=== PATIENT | male | born 1945 | race Caucasian/White ===

== ENCOUNTER 2017-03-09 18:51 | Emergency (ER) | payer MEDICARE ==
[~2017-03-09] VITALS: Ht 170.2 cm; Wt 77.1 kg
[2017-03-09] MEDS ORDERED: METOPROLOL TART50 MG PO (19:23)
[2017-03-09] MEDS ORDERED: SIMVASTATIN40 MG PO (19:23)
[2017-03-09] MEDS ORDERED: HYDROCHLOROTH12.5 M1 PO (19:23)
[2017-03-09] MEDS ORDERED: LISINOPRIL20 MG PO (19:24)
[2017-03-09] MEDS ORDERED: METFORMIN HCL500 MG PO (19:24)
--- NOTE | 2017-03-10 20:00 | EKG ---
[facility] [address] [facility] [place] [address] Signed Sinus tachycardia Possible Left atrial enlargement Borderline ECG No previous ECGs available Confirmed by LEESA THAKKAR MD ([id number]) on 03/10/2017 7:59:47 PM Electronically Signed By: LEESA THAKKAR MD 03/10/17 2000 PATIENT NAME: JULIO PARIS Electrocardiogram DATE OF : 45 PHYSICIAN: LEESA THAKKAR MD REPORT #: [id number] REPORT IS CONFIDENTIAL AND NOT TO BE RELEASED WITHOUT AUTHORIZATION
== END 2017-03-09 23:35 | disposition home or self-care (01) ==
LOC: ED 18:51
DX: E11.65 Type 2 diabetes mellitus with hyperglycemia (principal); E86.0 Dehydration; E78.00 Pure hypercholesterolemia, unspecified; I10 Essential (primary) hypertension; Z79.899 Other long term (current) drug therapy; Z79.84 Long term (current) use of oral hypoglycemic drugs
CPT/HCPCS: 71010; 80053; 81001; 84484; 85025; 93005; 93010; 96361; 96372; 96374; 99284; G0480; J7030

== ENCOUNTER 2018-10-30 12:36 | Emergency (ER) | payer OTHER, MEDICARE ==
[~2018-10-30] VITALS: Ht 170.2 cm; Wt 77.1 kg
--- OUTSIDE RECORDS SUMMARY | ~2018-10-30 | XMS | Clinical Summary ---
Demographics + + + | Address | [address] | | | [place] [address] | + + + | Home Phone | | + + + | Preferred Language | Unknown | + + + | Marital Status | | + + + | Adventist Affiliation | Unknown | + + + | Race | Unknown | + + + | Ethnic Group | Unknown | + + + Author + + + | Author | [facility] | + + + | Organization | [facility] | + + + | Address | Unknown | + + + | Phone | Unavailable | + + + Support + + + + + | Name | Relationship | Address | Phone | + + + + + | Breana Santiago | ECON | [address] | | | | | [place] | | | | | [address] | | + + + + + Care Team Providers + +------+ + | Care Senior Pharmacy Technician Name | Role | Phone | + [...] Vaccine: Influenza | | | | | (#1) | 8 | | | + + + + + Results Not on filefrom Last 3 Months"
--- OUTSIDE RECORDS SUMMARY | ~2018-10-30 | XMS | Clinical Summary ---
Demographics + + + | Address | [address] | | | [place] [address] | + + + | Home Phone | | + + + | Preferred Language | Unknown | + + + | Marital Status | | + + + | Yazdanism Affiliation | NON | + + + | Race | White | + + + | Ethnic Group | Not or | + + + Author + + + | Author | NON REVENUE LOCATIONS | + + + | Organization | NON REVENUE LOCATIONS | + + + | Address | Unknown | + + + | Phone | Unavailable | + + + Support + + + + + | Name | Relationship | Address | Phone | + + + + + | JUJU PARIS | ECON | [address] | | | | | [place] | | | | | [address] | | + + + + + Care Team Providers + +------+ + | Care Mattress Weaver Name | Role | Phone | + +------+ + | Dago Dodd MD | PP | | + +------+ + Source Comments ALLEGRA is fully live on both [facility] Ambulatory and [facility] InPatient.[facility] Allergies No Known Allergies Current Medications + + +-------+---------+------+------+-------+ | Prescription | Sig. | Disp. | Refills | Star | End | Statu | | | | | | t | Date | s | | | | | | Date | | | + + +-------+---------+------+------+-------+ | MULTIVITAMINS | Take by mouth once | | | | | Activ | | (MULTIVITAMIN ORAL) | daily. | | | | | e | + + +-------+---------+------+------+-------+ | lisinopril 10 mg | Take 10 mg by mouth | | | | | Activ | | Oral Tablet | once daily. | | | | | e | + + +-------+---------+------+------+-------+ | metformin 500 mg | Take 500 mg by mouth | | | | | Activ | | Oral Tablet | three times daily. | | | | | e | + + +-------+---------+------+------+-------+ | Aspirin 81 mg Oral | Take 81 mg by mouth | | | | | Activ | | Tablet | once daily. | | | | | e | + + +-------+---------+------+------+-------+ Active Problems + + + | Problem | Noted Date | + + + | Cervical stenosis of spinal canal | 06/07/2009 | + + + | Discitis of lumbar region | 03/22/2009 | + + + Family History + + +------+ + | Medical History | Relation | Name | Comments | + + +------+ + | Stroke | Mother | | | + + +------+ + + +------+--------+ + | Relation | Name | Status | Comments | + +------+--------+ + | Mother | | | | + +------+--------+ + Social History + +-------+ +--------+------+ | [...] on file | | + + + Last Filed Vital Signs + + + + | Vital Sign | Reading | Time Taken | + + + + | Blood Pressure | 198/117 | 06/21/2009 10:16 AM PST | + + + + | Pulse | 94 | 06/21/2009 10:16 AM PST | + + + + | Temperature | 37.4 C (99.3 F) | 06/10/2009 7:27 AM PST | + + + + | Respiratory Rate | 16 | 06/10/2009 7:27 AM PST | + + + + | Oxygen Saturation | 96% | 06/10/2009 7:27 AM PST | + + + + | Inhaled Oxygen | - | - | | Concentration | | | + + + + | Weight | 74.9 kg (165 lb 1.6 | 06/21/2009 10:05 AM PST | | | oz) | | + + + + | Height | 170.2 cm (5' 7") | 06/07/2009 1:48 PM PST | + + + + | Body Mass Index | 25.86 | 06/21/2009 10:05 AM PST | + + + + Plan of Treatment + + + + + | Health Maintenance | Due Date | Last Done | Comments | + + + + + | Pneumococcal (Adult) | | | | | (1 of 2 - PCV13) | 1 | | | + + + + + | Influenza (Flu) | | | | | vaccination (#1) | 8 | | | + + + + + Results Not on filefrom Last 3 Months Insurance + +--------+ +--------+ + + | Payer | Benefi | Subscriber | Type | Phone | Address | | | t Plan | ID | | | | | | / | | | | | | | Group | | | | | + +--------+ +--------+ + + | MEDICARE | MEDICA | xxxxxxxxxx | Medica | [id number] | [address] | | | RE A & | | re | [phone] | [place] [address] | | | B | | | | | + +--------+ +--------+ + + + +--------+ +--------+ + + | Guarantor Name | Accoun | Relation to | Date | Phone | Billing Address | | | t Type | Patient | of | | | | | | | | | | + +--------+ +--------+ + + | JULIO PARIS | Person | Self [birth year] Home: | [address] | [place] | al/Fam | | 1946 | [phone] | [place] [address] | | | bib | | | [phone] | | + +--------+ +--------+ + +
--- OUTSIDE RECORDS SUMMARY | ~2018-10-30 | XMS | Clinical Summary ---
Demographics + + + | Address | [address] | | | [place] [address] | + + + | Home Phone | | + + + | Preferred Language | Unknown | + + + | Marital Status | | + + + | Voodoo Affiliation | NON | + + + [...] [place] | | | | | [address] | | + + + + + Care Team Providers + +------+ + | Care Corner Trimmer Operator Name | Role | Phone | + +------+ + | Dago Dodd MD | PP | | + +------+ + Source Comments ALLEGRA is fully live on both [facility] Ambulatory and [facility] InPatient.[facility] Allergies No Known Allergies Current Medications + [...] | MEDICA | xxxxxxxxxx | Medica | [id number] | [address] | | | RE A & | | re | [phone] | [place] [address] | | | B | | | [...] | 1946 | [phone] | [place] [address] | | | bib | | | [phone] | | + +--------+ +--------+ + +
--- OUTSIDE RECORDS SUMMARY | ~2018-10-30 | XMS | Clinical Summary ---
Demographics + + + | Address | [address] | | | [place] [address] | + + + | Home Phone | | + + + | Preferred Language | Unknown | + + + | Marital Status | | + + + | Uatsdin Affiliation | Unknown | + + + | Race | Unknown | + + + | Ethnic Group | Unknown | + + + Author + + + | Author | [facility] [employer] | + + + | Organization | [facility] | + + + | Address | Unknown | + + + | Phone | Unavailable | + + + Support + + + + + | Name | Relationship | Address | Phone | + + + + + | Breana Santiago | ECON | [address] | | | | | [place] | | | | | [address] | | + + + + + Care Team Providers + +------+ + | Care Automotive Parts Counter Assistant Name | Role | Phone | + [...]
--- OUTSIDE RECORDS SUMMARY | ~2018-10-30 | XMS | Clinical Summary ---
Demographics + + + | Address | [address] | | | [place] [address] | + + + | Home Phone | | + + + | Preferred Language | Unknown | + + + | Marital Status | | + + + | Pentecostal Affiliation | Unknown | + + + | Race | Unknown | + + + | Ethnic Group | Unknown | + + + Author + + + | Author | [facility] | | | and Anandana | + + + | Organization | [facility] | | | and Anandana | + + + | Address | Unknown | + + + | Phone | Unavailable | + + + Support + + +---------+ + | Name | Relationship | Address | Phone | + + +---------+ + | Breana Paris | ECON | Unknown | | + + +---------+ + Care Team Providers + +------+ + | Care Vault Service Mechanic Name | Role | Phone | + +------+ + | Hernando Shane MD | PP | | + +------+ + Allergies No Known Allergies Current Medications + + +-------+---------+------+------+-------+ | Prescription | Sig. | Disp. | Refills | Star | End | Statu | | | | | | t | Date | s | | | | | | Date | | | + + +-------+---------+------+------+-------+ | metFORMIN | Take 500 mg by mouth | | | | | Activ | | (GLUCOPHAGE) 500 mg | 2 times daily (with | | | | | e | | tablet | breakfast & | | | | | | | | dinner). | | | | | | + + +-------+---------+------+------+-------+ | insulin glargine | Inject 55 Units | | | | | Activ | | (LANTUS) 100 | under the skin | | | | | e | | units/mL injection | nightly. | | | | | | | (vial) | | | | | | | + + +-------+---------+------+------+-------+ | lisinopril | Take 20 mg by mouth | | | | | Activ | | (PRINIVIL, ZESTRIL) | Daily. | | | | | e | | 20 mg tablet | | | | | | | + + +-------+---------+------+------+-------+ | | Take 12.5 mg by | | | | | Activ | | hydrochlorothiazide | mouth Daily. | | | | | e | | (HYDRODIURIL) 12.5 | | | | | | | | MG tablet | | | | | | | + + +-------+---------+------+------+-------+ | simvastatin | Take 20 mg by mouth | | | | | Activ | | (ZOCOR) 40 mg tablet | nightly. | | | | | e | + + +-------+---------+------+------+-------+ | metoprolol | Take 50 mg by mouth | | | | | Activ | | tartrate (LOPRESSOR) | 2 times daily. | | | | | e | | 50 mg tablet | | | | | | | + + +-------+---------+------+------+-------+ Active Problems + [...] + + | Pulse | 73 | 10/18/2015 1100 PDT | + + + + | Temperature | 36.5 C (97.7 F) | 10/18/2015 1019 PDT | + + + + | Respiratory Rate | 24 | 10/18/2015 1045 PDT | + + + + | Oxygen Saturation | 95% | 10/18/2015 1100 PDT | + + [...] | Area | Manufacture | Device | Expira | Model | | | | | r | | tion | / | | | | | | Identi | Date | Serial | | | | | | fier | | / Lot | + +------+--------+ +--------+--------+--------+ | Lens [id number] 25.0 - [id number] | | Left: | [employer] | | 12/31/ | [id number] | | [id number]: Qty: 1 on | | Eye | - ALCN | | 2019 | 25.0 | | 09/06/2015 by Azeem Ernandez | | | | | | /[id number] | | MD Ritchie | | | | | | 052 | | | | | | | | 117 / | + +------+--------+ +--------+--------+--------+ | Lens Ultrasert [id number] - | | Right: | [employer] | | 06/02/ | [id number] | | [id number]: Qty: | | Eye | - ALCN | | 2018 | .25.5 | | 1 on 10/18/2015 by Awais, | | | | | | /[id number] | | Azeem Dugan MD | | | | | | 086 | | | | | | | | 064 / | + +------+--------+ +--------+--------+--------+ Results Not on filefrom Last 3 Months Insurance + +--------+ +--------+ +---------+ | Payer | Benefi | Subscriber | Type | Phone | Address | | | t Plan | ID | | | | | | / | | | | | | | Group | | | | | + +--------+ +--------+ +---------+ | MEDICARE | MEDICA | [id number] | Medica | [phone] | | | RE | | re | [phone] | | | | PART A | | | | | | | AND B | | | | | + +--------+ +--------+ +---------+ | [employer] | TRANSA | [id number] | Indemn | | | | INSURANCE | MERICA | | ity | | | | | LIFE | | | | | | | [place] | | | | | + +--------+ +--------+ +---------+ + +--------+ +--------+ + + | Guarantor Name | Accoun | Relation to | Date | Phone | Billing Address | | | t Type | Patient | of | | | | | | | | | | + +--------+ +--------+ + + | JULIO PARIS | Person | Self | [birth year] | Home: | [address] | | [place] | al/Fam | | 1946 | [phone] | [place] [address] | | | bib | | | [phone] | | + +--------+ +--------+ + +
--- OUTSIDE RECORDS SUMMARY | ~2018-10-30 | XMS | Clinical Summary ---
Demographics + + + | Address | [address] | | | [place] [address] | + + + | Home Phone | | + + + | Preferred Language | Unknown | + + + | Marital Status | | + + + | Druze Affiliation | Unknown | + + + | Race | Unknown | + + + | Ethnic Group | Unknown | + + + Author + + + | Author | [facility] | | | and Anandana | + + + | Organization | [facility] | | | and Anandana [...] Team Providers + +------+ + | Care Public Events Facilities Rental Manager Name | Role | Phone | + [...] +------+--------+ +--------+--------+--------+ | Lens Sn60wf 25.0 - [id number] | | Left: | [employer] | | 12/31/ | [id number] | | [id number]: Qty: 1 on | | Eye | - ALCN | | 2019 | 25.0 | | 09/06/2015 by Azeem Ernandez | | | | | | /[id number] | | MD Ritchie | | | | | | 052 | | | | | | | | 117 / | + +------+--------+ +--------+--------+--------+ | Lens Ultrasert [id number] - | | Right: | [employer] | | 06/02/ | [id number] | | [id number]: Qty: | | Eye | - ALCN | | 2018 | .25.5 | | 1 on 10/18/2015 by Awais, | | | | | | /[id number] | | Azeem Dugan MD | | [...] +--------+ +---------+ | MEDICARE | MEDICA | [id number] | Medica | [phone] | | | RE | | re | [phone] | | | | PART A | | | | | | | AND B | | | | | + +--------+ +--------+ +---------+ | [employer] | TRANSA | [id number] | Indemn | | | | INSURANCE [...] | 1946 | [phone] | [place] [address] | | | bib | | | [phone] | | + +--------+ +--------+ + +
[~2018-10-30 12:36] MED LIST: HYDROCHLOROTH12.5 M1 PO; LISINOPRIL20 MG PO; METFORMIN HCL500 MG PO; METOPROLOL TART50 MG PO; SIMVASTATIN40 MG PO
[2018-10-30] MEDS ORDERED: LANTUS100 UNITS/ SUB-Q (12:47)
[2018-10-30] MEDS ORDERED: NORCO 5-325 TA1 EACH PO (16:49)
[2018-10-30] MEDS ORDERED: CIPRO500 MG PO (16:49)
== END 2018-10-30 17:40 | disposition home or self-care (01) ==
LOC: ED 12:36
DX: N39.0 Urinary tract infection, site not specified (principal); C64.1 Malignant neoplasm of right kidney, except renal pelvis; E11.9 Type 2 diabetes mellitus without complications; I10 Essential (primary) hypertension; Z79.899 Other long term (current) drug therapy; Z79.4 Long term (current) use of insulin
CPT/HCPCS: 74177; 76705; 80053; 81001; 83690; 85025; 87088; 96361; 99284-25; J1170; J1956; J7120; Q9967

== ENCOUNTER 2018-12-10 17:39 | Inpatient (IN) | payer MEDICARE ==
[~2018-12-10] VITALS: Ht 170.2 cm; Wt 75.5 kg
--- OUTSIDE RECORDS SUMMARY | ~2018-12-10 | XMS | Clinical Summary ---
Demographics + + + | Address | [address] | | | [place] [address] | + + + | Home Phone | | + + + | Preferred Language | Unknown | + + + | Marital Status | | + + + | Pentecostalism Affiliation | Unknown | + + + | Race | Unknown | + + + | Ethnic Group | Unknown | + + + Author + + + | Author | [facility] | + + + | Organization | [facility] | + + + | Address | Unknown | + + + | Phone | Unavailable | + + + Support + + + + + | Name | Relationship | Address | Phone | + + + + + | Breana Santiago | ECON | [address] | | | | | [place] | | | | | [address] | | + + + + + Care Team Providers + +------+ + | Care Bread Panner Name | Role | Phone | + +------+ + | German Cotton MD | PP | | + +------+ + Allergies Not on File Current Medications Not on file Active Problems Not on file Social History + +-------+ +--------+------+ | Tobacco Use | Types | Packs/Day | Years | Date | | | | | Used | | + +-------+ +--------+------+ | Never Assessed | | | | | + +-------+ +--------+------+ + + + | Sex Assigned at | Date Recorded | | | | + + + | Not on file | | + + + Plan of Treatment + + + + + | Health Maintenance | Due Date | Last Done | Comments | + + + + + | Vaccine: | | | | | Dtap/Tdap/Td (1 - | 5 | | | | Tdap) | | | | + + + + + | Vaccine: Zoster (1 | | | | | of 2) | 6 | | | + + + + + | Vaccine: | | | | | Pneumococcal 65+ | 1 | | | | Low/Medium Risk (1 | | | | | of 2 - PCV13) | | | | + + + + + | Vaccine: Influenza | | | | | (Season Ended) | 9 | | | + + + + + Results Not on filefrom Last 3 Months"
--- OUTSIDE RECORDS SUMMARY | ~2018-12-10 | XMS | Encounter Summary ---
Demographics + + + | Address | [address] | | | [place] [address] | + + + | Home Phone | | + + + | Preferred Language | Unknown | + + + | Marital Status | | + + + | Rastafarian Affiliation | NON | + + + | Race | White | + + + | Ethnic Group | Not or | + + + Author + + + | Author | [facility] | + + + | Organization | [facility] | + + + | Address | Unknown | + + + | Phone | Unavailable | + + + Support + + + + + | Name | Relationship | Address | Phone | + + + + + | JUJU PARIS | ECON | [address] | | | | | [place], [place] | | | | | [address] | | + + + + + Care Team Providers + +------+ + | Care Christmas Bell Ringer Name | Role | Phone | + +------+ + | Dago Dodd MD | PCP | | + +------+ + Encounter Details +--------+ + + + + | Date | Type | Department | Care Team | Description | +--------+ + + + + | 12/02/ | Abstract | Urology at [facility] | Clinic, | | | 2019 | | [address] | Urology/Oncology | | | | | Mail Code: CH10U | | | | | | [facility] | | | | | | and Healing, | | | | | | Floor [place], [place] | | | | | | [address] | | | | | | [phone] | | | +--------+ + + + + Social History + +-------+ +--------+------+ | Tobacco Use | Types | Packs/Day | Years | Date | | | | | Used | | + +-------+ +--------+------+ | Never Smoker | | | | | + +-------+ +--------+------+ + + +---------+ + | Alcohol Use | Drinks/We | oz/Week | Comments | | | ek | | | + + +---------+ + | No | | | | + + +---------+ + + + + | Sex Assigned at | Date Recorded | | | | + + + | Not on file | | + + + as of this encounter Plan of Treatment +--------+---------+ + + + | Date | Type | Specialty | Care Team | Description | +--------+---------+ + + + | 01/03/ | Office | Urology | [place], | | | 2019 | Visit | | Gerald Persaud MD | | | | | | [address] | | | | | | [place], | | | | | | [place] [address] | | | | | | [phone] | | | | | | | | +--------+---------+ + + + as of this encounter Visit Diagnoses Not on filein this encounter"
--- OUTSIDE RECORDS SUMMARY | ~2018-12-10 | XMS | Clinical Summary ---
Demographics + + + | Address | [address] | | | [place] [address] | + + + | Home Phone | | + + + | Preferred Language | Unknown | + + + | Marital Status | | + + + | Caodaism Affiliation | Unknown | + + + | Race | Unknown | + + + | Ethnic Group | Unknown | + + + Author + + + | Author | [facility] | | | and Anandana | + + + | Organization | [facility] | | | and Anandana | + + + | Address | Unknown | + + + | Phone | Unavailable | + + + Support + + +---------+ + | Name | Relationship | Address | Phone | + + +---------+ + | Breana Santiago | ECON | Unknown | | + + +---------+ + Care Team Providers + +------+ + | Care Anesthesiology Faculty Name | Role | Phone | + +------+ + | Hernando Shane MD | PP | | + +------+ + Allergies No Known Allergies Medications + + + +---------+------+------+-------+ | Medication | Sig | Dispensed | Refills | Star | End | Statu | | | | | | t | Date | s | | | | | | Date | | | + + + +---------+------+------+-------+ | metFORMIN | Take 500 mg by mouth | | 0 | | | Activ | | (GLUCOPHAGE) 500 mg | 2 times daily (with | | | | | e | | tablet | breakfast & | | | | | | | | dinner). | | | | | | + + + +---------+------+------+-------+ | insulin glargine | Inject 55 Units | | 0 | | | Activ | | (LANTUS) 100 | under the skin | | | | | e | | units/mL injection | nightly. | | | | | | | (vial) | | | | | | | + + + +---------+------+------+-------+ | lisinopril | Take 20 mg by mouth | | 0 | | | Activ | | (PRINIVIL, ZESTRIL) | Daily. | | | | | e | | 20 mg tablet | | | | | | | + + + +---------+------+------+-------+ | | Take 12.5 mg by | | 0 | | | Activ | | hydrochlorothiazide | mouth Daily. | | | | | e | | (HYDRODIURIL) 12.5 | | | | | | | | MG tablet | | | | | | | + + + +---------+------+------+-------+ | simvastatin | Take 20 mg by mouth | | 0 | | | Activ | | (ZOCOR) 40 mg tablet | nightly. | | | | | e | + + + +---------+------+------+-------+ | metoprolol | Take 50 mg by mouth | | 0 | | | Activ | | tartrate (LOPRESSOR) | 2 times daily. | | | | | e | | 50 mg tablet | | | | | | | + + + +---------+------+------+-------+ Active Problems + + + | Problem | Noted Date | + + + | Hypertension | | + + + | Arthritis | | + + + Social History + + + +--------+ + | Tobacco Use | Types | Packs/Day | Years | Date | | | | | Used | | + + + +--------+ + | Former Smoker | Cigarettes | 0.5 | 5 | Quit: 08/03/1979 | + + + +--------+ + + +---+---+---+ | Smokeless Tobacco: | | | | | Never Used | | | | + +---+---+---+ + + +---------+ + | Alcohol Use | Drinks/We | oz/Week | Comments | | | ek | | | + + +---------+ + | No | | | | + + +---------+ + + + + | Sex Assigned at | Date Recorded | | | | + + + | Not on file | | + + + + + + + | Job Start Date | Occupation | Industry | + + + + | Not on file | Not on file | Not on file | + + + + + + + + | Travel History | Travel Start | Travel End | + + + + + + | No recent travel history available. | + + Last Filed Vital Signs + + + + | Vital Sign | Reading | Time Taken | + + + + | Blood Pressure | 168/73 | 10/18/2015 1100 PDT | + + + + | Pulse | 73 | 10/18/20151099 PDT | + + + + | Temperature | 36.5 C (97.7 F) | 10/18/2015 1019 PDT | + + + + | Respiratory Rate | 24 | 10/18/2015 1045 PDT | + + + + | Oxygen Saturation | 95% | 10/18/20151099 PDT | + + + + | Inhaled Oxygen | - | - | | Concentration | | | + + + + | Weight | 80.7 kg (178 lb) | 10/18/2015699 PDT | + + + + | Height | 170.2 cm (5' 7") | 10/18/2015699 PDT | + + + + | Body Mass Index | 27.88 | 10/18/2015699 PDT | + + + + Plan of [...] | | + + + + + Implants + +------+--------+ +--------+--------+--------+ | Implanted | Type | Area | Manufacture | Device | Shelf | Model | | | | | r | | Expira | / | | | | | | Identi | tion | Serial | | | | | | fier | Date | / Lot | + +------+--------+ +--------+--------+--------+ | Lens [id number] 25.0 - [id number] | | Left: | [employer] | | 12/31/ | [id number] | | [id number]: Qty: 1 on | | Eye | - ALCN | | 2020 | 25.0 | | 09/06/2015 by Azeem Ernandez | | | | | | /[id number] | | MD Ritchie | | | | | | 052 | | | | | | | | 117 / | + +------+--------+ +--------+--------+--------+ | Lens Ultrasert [id number] - | | Right: | [employer] | | 06/02/ | [id number] | | [id number]: Qty: | | Eye | - ALCN | | 2018 | .25.5 | | 1 on 10/18/2015 by Awais, | | | | | | /[id number] | | Azeem Dugan MD | | | | | | 086 | | | | | | | | 064 / | + +------+--------+ +--------+--------+--------+ Results Not on filefrom Last 3 Months Insurance + +--------+ +--------+ +---------+--------+ | Payer | Benefi | Subscriber | Effect | Phone | Address | Type | | | t Plan | ID | duglas | | | | | | / | | Dates | | | | | | Group | | | | | | + +--------+ +--------+ +---------+--------+ | MEDICARE | MEDICA | [id number] | 12/02/19 | [phone] | | Medica | | | RE | | 11-Pre | 5 | | re | | | PART A | | sent | | | | | | AND B | | | | | | + +--------+ +--------+ +---------+--------+ | [employer] | TRANSA | [id number] | 08/03/19 | | | Indemn | | INSURANCE | MERICA | | 14-Pre | | | ity | | | LIFE | | sent | | | | | | [place] | | | | | | + +--------+ +--------+ +---------+--------+ + +--------+ +--------+ + + | Guarantor Name | Accoun | Relation to | Date | Phone | Billing Address | | | t Type | Patient | of | | | | | | | | | | + +--------+ +--------+ + + | Bill Santiago | Person | Self [birth year] | [address] | | [place] | al/[place] | | 1946 | [phone] | [place] [address] | | | bib | | | 4 (Home) | | + +--------+ +--------+ + + Advance Directives Patient has advance care planning documents, and code status on file. For more information, please contact:[facility] [address] + + + + + | Code Status | Date | Date | Comments | | | Activated | Inactivated | | + + + + + | Full Code | 10/18/2015 | 10/18/2015 | | | | 10:47 | 13:20 | | + + + + + + + + +---+ | | | | | + + + +---+ | Full Code | 09/06/2015 | 09/06/2015 | | | | 11:22 | 14:03 | | + + + +---+
--- OUTSIDE RECORDS SUMMARY | ~2018-12-10 | XMS | Clinical Summary ---
Demographics + + + | Address | [address] | | | [place] [address] | + + + | Home Phone | | + + + | Preferred Language | Unknown | + + + | Marital Status | | + + + | Zoroastrianism Affiliation | Unknown | + + + | Race | Unknown | + + + | Ethnic Group | Unknown | + + + Author + + + | Author | [facility] | + + + | Organization | [facility] | + + + | Address | Unknown | + + + | Phone | Unavailable | + + + Support + + + + + | Name | Relationship | Address | Phone | + + + + + | Breana Santiago | ECON | [address] | | | | | [place] | | | | | [address] | | + + + + + Care Team Providers + +------+ + | Care Retail Brand Ambassador Name | Role | Phone | + [...]
--- OUTSIDE RECORDS SUMMARY | ~2018-12-10 | XMS | Clinical Summary ---
Demographics + + + | Address | [address] | | | [place] [address] | + + + | Home Phone | | + + + | Preferred Language | Unknown | + + + | Marital Status | | + + + | Holiness Affiliation | NON | + + + [...] | JUJU [place]IS | ECON | [address] | | | | | [place] | | | | | [address] | | + + + + + Care Team Providers + +------+ + | Care Calender Wind Up Helper Name | Role | Phone | + +------+ + | Unknown | PP | Unavailable | + +------+ + Source Comments ALLEGRA is fully live on both [facility] Ambulatory and [facility] Allergies No Known Allergies Current Medications + [...] region | 03/22/2009 | + + + Encounters +--------+ + + + + | Date | Type | Specialty | Care Team | Description | +--------+ + + + + | 12/07/ | Hospital | | | | | 2018 | Encounter | | | | +--------+ + + + + | 12/02/ | Abstract | | Clinic, | | | 2018 | | | Urology/Oncology | | +--------+ + + + + from Last 3 Months Family History + + +------+ + | [...] + + + + Plan of Treatment +--------+---------+ + + + | Date | Type | Specialty | Care Team | Description | +--------+---------+ + + + | 01/03/ | Office | | [place], | | | 2019 | Visit | | Gerald Persaud MD | | | | | | [address] | | | | | | [place], | | | | | | [place] [address] | | | | | | [phone] | | | | | | | | +--------+---------+ + + + + + + + + | Health Maintenance | Due Date | Last Done | Comments | + + + + + | Pneumococcal (Adult) | | | | | (1 of 2 - PCV13) | 1 | | | + + + + + | Influenza (Flu) | | | | | vaccination (Season | 9 | | | | Ended) | | | | + + + [...] + + | MEDICARE | MEDICA | xxxxxxxxxxx | Medica | [phone] | [address] | | | RE A & | | re | [phone] | [place] [address] | | | B | | | [...] Self | [birth year] | Home: | [address] | | [place] | al/Fam | | 1946 | [phone] | [place] [address] | | | bib | | | [phone] | | + +--------+ +--------+ + +
--- OUTSIDE RECORDS SUMMARY | ~2018-12-10 | XMS | Encounter Summary ---
Demographics + + + | Address | [address] | | | [place] [address] | + + + | Home Phone | | + + + | Preferred Language | Unknown | + + + | Marital Status | | + + + | Yarsanism Affiliation | NON | + + + | Race | White | + + + | Ethnic Group | Not or | + + + Author + + + | Author | [facility] | + + + | Organization | [facility] | + + + | Address | Unknown | + + + | Phone | Unavailable | + + + Support + + + + + | Name | Relationship | Address | Phone | + + + + + | JUJU PARIS | ECON | [address] | | | | | [place], [place] | | | | | [address] | | + + + + + Care Team Providers + +------+ + | Care Digital Computer Operator Name | Role | Phone | + +------+ + | Dago Dodd MD | PCP | | + +------+ + Encounter Details +--------+ + + + + | Date | Type | Department | Care Team | Description | +--------+ + + + + | 12/02/ | Abstract | Urology at [facility] | Clinic, | | | 2019 | | [address] | Urology/Oncology | | | | | Mail Code: CH10U | | | | | | [facility] | | | | | | and Healing, | | | | | | Floor [place], [place] | | | | | | [address] | | | | | | [phone] | | | +--------+ + + + [...] MD | | | | | | [address] | | | | | | [place], | | | | | | [place] [address] | | | | | | [phone] | | | | | | | | +--------+---------+ + + + as of this encounter Visit Diagnoses Not on filein this encounter"
--- OUTSIDE RECORDS SUMMARY | ~2018-12-10 | XMS | Clinical Summary ---
Demographics + + + | Address | [address] | | | [place] [address] | + + + | Home Phone | | + + + | Preferred Language | Unknown | + + + | Marital Status | | + + + | Nondenominational Affiliation | Unknown | + + + | Race | Unknown | + + + | Ethnic Group | Unknown | + + + Author + + + | Author | [facility] | | | and Anandana | + + + | Organization | [facility] | | | and Anandana [...] Team Providers + +------+ + | Care Grinder Tender Name | Role | Phone | + [...] +------+--------+ +--------+--------+--------+ | Lens [id number] 25.0 - [id number] | | Left: | [facility] | | 12/31/ | [id number] | | [id number]: Qty: 1 on | | Eye | - [facility]CN | | 2020 | 25.0 | | 09/06/2015 by Azeem Ernandez | | | | | | /[id number] | | MD [place] | | | | | | 052 | | | | | | | | 117 / | + +------+--------+ +--------+--------+--------+ | Lens Ultrasert [id number] - | | Right: | [facility] | | 06/02/ | [id number] | | [id number]: Qty: | | Eye | - [facility]CN | | 2018 | .25.5 | | 1 on 10/18/2015 by Awais, | | | | | | /[id number] | | Azeem Dugan MD | | [...] +--------+ +---------+--------+ | MEDICARE | MEDICA | [id number] | 12/02/19 | [phone] | | Medica | | | RE | | 11-Pre | 5 | | re | | | PART A | | sent | | | | | | AND B | | | | | | + +--------+ +--------+ +---------+--------+ | [employer] | TRANSA | [id number] | 08/03/19 | | | Indemn | [...] | 1946 | [phone] | [place] [address] | | | bib | | | 4 (Home) | | + +--------+ +--------+ + + Advance Directives Patient has advance care planning documents, and code status on file. For more information, please contact:[facility] [address] + + + + + | Code [...]
--- OUTSIDE RECORDS SUMMARY | ~2018-12-10 | XMS | Encounter Summary ---
Demographics + + + | Address | [address] | | | [place] [address] | + + + | Home Phone | | + + + | Preferred Language | Unknown | + + + | Marital Status | | + + + | Bahai Affiliation | NON | + + + | Race | White | + + + | Ethnic Group | Not or | + + + Author + + + | Author | [facility] | + + + | Organization | [facility] | + + + | Address | Unknown | + + + | Phone | Unavailable | + + + Support + + + + + | Name | Relationship | Address | Phone | + + + + + | JUJU PARIS | ECON | [address] | | | | | [place], [place] | | | | | [address] | | + + + + + Care Team Providers + +------+ + | Care Order Entry Clerk Name | Role | Phone | + +------+ + | Unknown | PCP | Unavailable | + +------+ + Encounter Details +--------+ + + + + | Date | Type | Department | Care Team | Description | +--------+ + + + + | 12/07/ | Hospital | Registration [facility] | | | | 2019 | Encounter | [address] | | | | | | [place] | | | | | | [place], [place] | | | | | | [address] | | | +--------+ + + + [...] + + + as of this encounter Medications at Time of Discharge + + +-------+---------+--------+ + | Medication | Sig. | Disp. | Refills | Start | End Date | | | | | | Date | | + + +-------+---------+--------+ + | Aspirin 81 mg Oral | Take 81 mg by mouth | | | | | | Tablet | once daily. | | | | | + + +-------+---------+--------+ + | lisinopril 10 mg | Take 10 mg by mouth | | | | | | Oral Tablet | once daily. | | | | | + + +-------+---------+--------+ + | metformin 500 mg | Take 500 mg by mouth | | | | | | Oral Tablet | three times daily. | | | | | + + +-------+---------+--------+ + | MULTIVITAMINS | Take by mouth once | | | | | | (MULTIVITAMIN ORAL) | daily. | | | | | + + +-------+---------+--------+ + as of this encounter Plan of Treatment +--------+---------+ + + + | Date | Type | Specialty | Care Team | Description | +--------+---------+ + + + | 01/03/ | Office | Urology | [place], | | | 2018 | Visit | | Gerald Persaud MD | | | | | | [address] | | | | | | [place], | | | | | | [place] [address] | | | | | | [phone] | | | | | | | | +--------+---------+ + + + as of this encounter Visit Diagnoses Not on filein this encounter"
--- OUTSIDE RECORDS SUMMARY | ~2018-12-10 | XMS | Encounter Summary ---
Demographics + + + | Address | [address] | | | [place] [address] | + + + | Home Phone | | + + + | Preferred Language | Unknown | + + + | Marital Status | | + + + | Latter-Day Affiliation | NON | + + + | Race | White | + + + | Ethnic Group | Not or | + + + Author + + + | Author | [facility] | + + + | Organization | [facility] | + + + | Address | Unknown | + + + | Phone | Unavailable | + + + Support + + + + + | Name | Relationship | Address | Phone | + + + + + | JUJU PARIS | ECON | [address] | | | | | [place], [place] | | | | | [address] | | + + + + + Care Team Providers + +------+ + | Care Computer Systems Integrator Name | Role | Phone | + [...] [address] | | | | | | [place] | | | | | | [place], [place] | | | | | | [address] | | | +--------+ + + + [...] MD | | | | | | [address] | | | | | | [place], | | | | | | [place] [address] | | | | | | [phone] | | | | | | | | +--------+---------+ + + + as of this encounter Visit Diagnoses Not on filein this encounter"
--- OUTSIDE RECORDS SUMMARY | ~2018-12-10 | XMS | Clinical Summary ---
Demographics + + + | Address | [address] | | | [place] [address] | + + + | Home Phone | | + + + | Preferred Language | Unknown | + + + | Marital Status | | + + + | Jehovah'S Witness Affiliation | NON | + + + [...] [place] | | | | | [address] | | + + + + + Care Team Providers + +------+ + | Care Biomedical Engineering Technician Name | Role | Phone | + +------+ + | Unknown | PP | Unavailable | + +------+ + Source Comments ALLEGRA is fully live on both [facility] Ambulatory and [facility] InPatient.[facility] Allergies No Known Allergies Current Medications + [...] | | | | | [place], | | | | | | [place] [address] | | | | | | [phone] | | | | | | | [...] | re | [address] | [place] [address] | | | B | | | [...] | 1946 | [phone] | [place] [address] | | | bib | | | [address] | | + +--------+ +--------+ + +
--- OUTSIDE RECORDS SUMMARY | ~2018-12-10 | XMS | Clinical Summary ---
Demographics + + + | Address | [address] | | | [place] [address] | + + + | Home Phone | | + + + | Preferred Language | Unknown | + + + | Marital Status | | + + + | Nondenominational Affiliation | Unknown | + + + | Race | Unknown | + + + | Ethnic Group | Unknown | + + + Author + + + | Author | [facility] | + + + | Organization | [facility] | + + + | Address | Unknown | + + + | Phone | Unavailable | + + + Support + + + + + | Name | Relationship | Address | Phone | + + + + + | Breana Santiago | ECON | [address] | | | | | [place] | | | | | [address] | | + + + + + Care Team Providers + +------+ + | Care Legal Support Manager Name | Role | Phone | [...]
--- OUTSIDE RECORDS SUMMARY | ~2018-12-10 | XMS | Encounter Summary ---
Demographics + + + | Address | [address] | | | [place] [address] | + + + | Home Phone | | + + + | Preferred Language | Unknown | + + + | Marital Status | | + + + | Congregational Affiliation | NON | + + + | Race | White | + + + | Ethnic Group | Not or | + + + Author + + + | Author | [facility] | + + + | Organization | [facility] | + + + | Address | Unknown | + + + | Phone | Unavailable | + + + Support + + + + + | Name | Relationship | Address | Phone | + + + + + | JUJU PARIS | ECON | [address] | | | | | [place], [place] | | | | | [address] | | + + + + + Care Team Providers + +------+ + | Care Gastroenterology Nurse Practitioner Name | Role | Phone | + +------+ + | Dago Dodd MD | PCP | | + +------+ + Encounter Details +--------+ + + + + | Date | Type | Department | Care Team | Description | +--------+ + + + + | 12/02/ | Abstract | Urology at [facility] | Clinic, | | | 2019 | | [address] | Urology/Oncology | | | | | Mail Code: CH10U | | | | | | [facility] | | | | | | and Healing, | | | | | | Floor [place], [place] | | | | | | [address] | | | | | | [phone] | | | +--------+ + + + [...] MD | | | | | | [address] | | | | | | [place], | | | | | | [place] [address] | | | | | | [phone] | | | | | | | | +--------+---------+ + + + as of this encounter Visit Diagnoses Not on filein this encounter"
--- OUTSIDE RECORDS SUMMARY | ~2018-12-10 | XMS | Clinical Summary ---
Demographics + + + | Address | [address] | | | [place] [address] | + + + | Home Phone | | + + + | Preferred Language | Unknown | + + + | Marital Status | | + + + | Christianity Affiliation | NON | + + + [...] [place] | | | | | [address] | | + + + + + Care Team Providers + +------+ + | Care Asw Specialist Name | Role | Phone | + +------+ + | Unknown | PP | Unavailable | + +------+ + Source Comments ALLEGRA is fully live on both [facility] Ambulatory and [facility] InPatient.[facility] Allergies No Known Allergies Current Medications + [...] | | | | | [place], | | | | | | [place] [address] | | | | | | [phone] | | | | | | | [...] | re | [address] | [place] [address] | | | B | | | [...] | 1946 | [phone] | [place] [address] | | | bib | | | [address] | | + +--------+ +--------+ + +
--- OUTSIDE RECORDS SUMMARY | ~2018-12-10 | XMS | Encounter Summary ---
Demographics + + + | Address | [address] | | | [place] [address] | + + + | Home Phone | | + + + | Preferred Language | Unknown | + + + | Marital Status | | + + + | Scientologist Affiliation | NON | + + + | Race | White | + + + | Ethnic Group | Not or | + + + Author + + + | Author | [facility] | + + + | Organization | [facility] | + + + | Address | Unknown | + + + | Phone | Unavailable | + + + Support + + + + + | Name | Relationship | Address | Phone | + + + + + | JUJU PARIS | ECON | [address] | | | | | [place], [place] | | | | | [address] | | + + + + + Care Team Providers + +------+ + | Care Knife Setter Assembler Name | Role | Phone | + [...] [address] | | | | | | [place] | | | | | | [place], [place] | | | | | | [address] | | | +--------+ + + + [...] MD | | | | | | [address] | | | | | | [place], | | | | | | [place] [address] | | | | | | [phone] | | | | | | | | +--------+---------+ + + + as of this encounter Visit Diagnoses Not on filein this encounter"
--- OUTSIDE RECORDS SUMMARY | ~2018-12-10 | XMS | Clinical Summary ---
Demographics + + + | Address | [address] | | | [place] [address] | + + + | Home Phone | | + + + | Preferred Language | Unknown | + + + | Marital Status | | + + + | Spiritism Affiliation | Unknown | + + + | Race | Unknown | + + + | Ethnic Group | Unknown | + + + Author + + + | Author | [facility] | | | and Anandana | + + + | Organization | [facility] | | | and [...] Team Providers + +------+ + | Care Department Clinician Name | Role | Phone | + [...] +------+--------+ +--------+--------+--------+ | Lens Sn60wf 25.0 - [id number] | | Left: | [facility] | | 12/31/ | [id number] | | [id number]: Qty: 1 on | | Eye | - [facility] | | 2020 | 25.0 | | 09/06/2015 by Azeem Ernandez | | | | | | /[id number] | | MD [place]ie | | | | | | 052 | | | | | | | | 117 / | + +------+--------+ +--------+--------+--------+ | Lens Ultrasert [id number] - | | Right: | [facility] | | 06/02/ | [id number] | | [id number]: Qty: | | Eye | - [facility] | | 2018 | .25.5 | | 1 on 10/18/2015 by Awais, | | | | | | /[id number] | | Azeem Dugan MD | | [...] +--------+ +---------+--------+ | MEDICARE | MEDICA | [id number] | 12/02/19 | [phone] | | Medica | | | RE | | 11-Pre | 5 | | re | | | PART A | | sent | | | | | | AND B | | | | | | + +--------+ +--------+ +---------+--------+ | [employer] | TRANSA | [id number] | 08/03/19 | | | Indemn | [...] | 1946 | [phone] | [place] [address] | | | bib | | | 4 (Home) | | + +--------+ +--------+ + + Advance Directives Patient has advance care planning documents, and code status on file. For more information, please contact:[facility] [address] + + + + + | Code [...]
[~2018-12-10 17:39] MED LIST changes: +CIPRO500 MG PO; +LANTUS100 UNITS/ SUB-Q; +NORCO 5-325 TA1 EACH PO
--- NOTE | 2018-12-10 20:54 | NUR ---
RECIEVED REPORT VIA TELEPHONE FROM ER NURSE. ALL QUESTIONS ANSWERED. WAITING FOR PATIENT TO ARRIVE TO THE FLOOR AT THIS TIME.
[2018-12-10] MEDS ORDERED: ASPIRIN81 MG PO (21:38)
--- NOTE | 2018-12-10 21:57 | NUR ---
PT ARRIVES TO FLOOR VIA WHEELCHAIR. PT STANDS AND EASILY TRANSFERS TO THE BED. PT'S PRESENT AT BEDSIDE. PT'S TO TAKE HOME PT'S WALLET. PT'S CLOTHING AND HAT IN THE CLOSET. PT DOES NOT HAVE A CELL PHONE WITH HIM. PT DENIES PAIN, NAUSEA, OR SOB. PT ASKS ABOUT DINNER. PT EDUCATION PROVIDED REGARDING DIET STATUS. UNDERSTANDING STATED. PT AND HIS DENY NEEDS AT THIS TIME. CALL LIGHT IN REACH. PT AND ORIENTED TO ROOM AND POC FOR THIS SHIFT.
--- NOTE | 2018-12-10 23:33 | NUR ---
ASSESSMENT COMPLETE, REFER TO ASSESSMENT. PATIENT REPORTS "6/10" "SHARP" PAIN IN RLQ THAT COMES AND GOES, PATIENT DENIES WANTING PRN PAIN MEDICATION AT THIS TIME. PATIENT DENIES HAVING CHEST PAIN, SHORTNESS OF BREATH, OR DIFFICULTY BREATHING. MEDICATION ADMINISTERED PER ORDER. ACTIVE BOWEL TONES NOTED, REPORTS PASSING FLATUS. PATIENT DENIES HAVING NAUSEA. PROVIDED EDUCATION TO PATIENT ABOUT USE OF CALL LIGHT, PATIENT EXPRESSED UNDERSTANDING. IV FLUIDS INFUSING PER ORDER. CALL LIGHT WITHIN REACH, NO MORE NEEDS AT THIS TIME. IV ASSESSED, WNL.
--- NOTE | 2018-12-11 00:10 | NUR ---
THIS RN ROUNDED ON PATIENT LAYING AWAKE IN BED WATCHING TV. SBA PT TO RESTROOM, PATIENT SAFETY BACK INTO BED. GALLBLADDER PACKET PROVIDED TO PT PER ORDER. SCDs IN PLACE PER ORDER. IV FLUIDS INFUSING PER ORDER. CALL LIGHT WITHIN REACH. NO MORE NEEDS AT THIS TIME.
--- NOTE | 2018-12-11 01:39 | NUR ---
ROUNDED ON PATIENT RESTING AWAKE IN BED. PATIENT DENIES HAVING PAIN. CHEMICAL EQUIPMENT REPAIRER IN ROOM TO OBTAIN VITAL SIGNS. CALL LIGHT WITHIN REACH. PATIENT DENIES HAVING ANYMORE NEEDS AT THIS TIME.
--- NOTE | 2018-12-11 03:08 | NUR ---
ROUNDED ON PATIENT RESTING IN BED WITH EYES CLOSED, RESPIRATORY RATE IS EVEN AND UNLABORED. CALL LIGHT WITHIN REACH.
--- NOTE | 2018-12-11 05:43 | NUR ---
PATIENT ARRIVED TO THE FLOOR FROM ED. IV FLUID BOLUS X1. IV FLUIDS INFUSING PER MAR ORDER. SCDs. ROOM AIR. PRN PAIN MEDICATION X1. DENIES NAUSEA. IV ABX X2. SBA. ACCU CHECK WITH SLIDING SCALE. NPO.
--- NOTE | 2018-12-11 06:00 | NUR ---
ASSESSMENT COMPLETE, REFER TO ASSESSMENT. PATIENT DENIES HAVING CHEST PAIN, PAIN, SHORTNESS OF BREATH, OR DIFFICULTY BREATHING. HYPOACTIVE BOWEL TONES NOTED, PATIENT PASSING FLATUS. PATIENT DENIES FEELING BLOATED. PATIENT DENIES NAUSEA. THIS RN ASSISTED PATIENT TO RESTROOM SBA, PATIENT SAFELY BACK INTO BED. INTAKE AND OUTPUT ASSESSED AND RECORDED. VITALS ASSESSSED AND RECORDED. CALL LIGHT WITHIN REACH. POSSESSIONS AT BEDSIDE. PATIENT DENIES HAVING ANY NEEDS AT THIS TIME.
--- NOTE | 2018-12-11 07:10 | NUR ---
BEDSIDE HANDOFF REPORT RECEIVED FROM FURNACE OPERATOR RN. PT RESTING IN BED. PT DENIES NEEDS AT THIS TIME.
--- NOTE | 2018-12-11 07:40 | NUR ---
PT BLOOD GLUCOSE 135, SS HUMALIN HELD. PT DENIES OTHER NEEDS AT THIS TIME.
--- NOTE | 2018-12-11 08:30 | NUR ---
PT RESTING IN BED. PT ON ROOM AIR, LUNG SOUND CLEAR, DENIES SOB. PT DENIES PAIN. PT DENIES NAUSEA, BOWEL TONES ACTIVE, RUQ PAIN WITH PALPITATION. LR AT 125 TO LEFT FA IV. PT NPO FOR SURGERY. PT WITHOUT EDEMA, CMS INTACT, SCDS IN PLACE. DISCUSSED PLAN OF CARE FOR THE DAY. ANTIHYPERTENSIVES GIVEN PER ORDER WITH SMALL SIP OF WATER. PT DENIES OTHER NEEDS AT THIS TIME.
--- NOTE | 2018-12-11 09:41 | NUR ---
PT COMPLETED WITH HEBICLEANSE SHOWER. IV FLUIDS RESUMED. SCDS IN PLACE. PT DENIES OTHER NEEDS AT THIS TIME.
--- NOTE | 2018-12-11 10:22 | HP ---
[facility] [address], [place] [address] Signed ADMISSION DATE: 12/10/2018 REASON FOR ADMISSION: Acute calculous cholecystitis. HISTORY OF PRESENT ILLNESS: This 73-year-old white man has underlying problems of hypertension and diabetes and is a patient of Dr. Shah. He presented to the emergency room at approximately 6:15 p.m., evaluated initially by Dr. Piotr Frances, subsequently by Dr. Aleman. He presented with complaints of right-sided abdominal pain, worsened with position change of supine position. He had no nausea or vomiting. He has had this problem for at least two days. It is uncertain if food worsened the pain. Notably, he was evaluated in the emergency room on October 30, 2018, underwent an ultrasound of the gallbladder for strong suspicion of acute cholecystitis, his evaluating physician was Dr. Aguayo. A gallbladder ultrasound was normal. Right kidney did show a hypoechoic lesion in the superior aspect of the kidney, suspicious for possible malignancy versus complex cyst. It was noted that patient has prior history of right partial nephrectomy for renal cell carcinoma performed at [facility] approximately 10 years ago. His evaluation this evening included a CT scan of the abdomen, this clearly shows a thickened gallbladder wall and a calcified gallstone wedged in the infundibulum. There is no sign of intrahepatic ductal dilatation. Renal lesion on the right is highly suspicious for malignancy it is noted. It is approximately 19 mm. The patient is admitted for further evaluation and care. PAST MEDICAL HISTORY: Significant for right renal cell carcinoma as previously described. He has also had skin cancer removal from the ear and back. The patient has never smoked. Does not use alcohol or illegal drugs. He does have hypertension and dyslipidemia as well as insulin-dependent diabetes mellitus. MEDICATIONS: At admission include: 1. Metoprolol 50 mg daily. 2. Simvastatin 40 mg daily. 3. Metformin 500 mg b.i.d. 4. Lisinopril 20 mg daily. 5. Insulin (Lantus 45 units subcu daily). Electronically Signed By: DRU AHMADI MD 12/11/18 1022 PATIENT NAME: JULIO PARIS HISTORY AND PHYSICAL DATE OF : 45 REPORT #: [id number] PHYSICIAN: DRU AHMADI MD PCP: OTHER PCP REPORT IS CONFIDENTIAL AND NOT TO BE RELEASED WITHOUT AUTHORIZATION [facility] [address] [place] [id number] Signed SOCIAL HISTORY: He is . 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 He lives in [place]. 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 REVIEW OF SYSTEMS: He denies any precordial chest pain, left arm pain, or left jaw pain. He does not have back pain particularly except when exerting himself he says. His pain is diffuse, but mostly in the right upper abdomen. PHYSICAL EXAMINATION: GENERAL: This is a pleasant white man, who does not look systemically toxic. HEENT: His trachea is midline. There is no carotid bruit. Mucous membranes are markedly dry. He has no IV running currently. CHEST: Clear without wheeze or rhonchi. HEART: Regular. I detect no murmur. ABDOMEN: Somewhat protuberant and relatively tight and without sign of ascites. He has marked tenderness in the right subcostal area. There is no palpable mass. EXTREMITIES: Show no clubbing, cyanosis, or edema. LAB STUDIES: Performed today show white count 10.3, hematocrit 35, and platelets 185,000. Chem profile is essentially normal, glucose 195, creatinine 1.0, and bilirubin 0.6. Liver enzymes normal. Albumin is 4.2. Lipase 29. Urinalysis is negative except for 10 white cells per high-power field, no rbc's. I have reviewed his ultrasound from previously as well as his CT scan today. ASSESSMENT: The patient has acute calculous cholecystitis. It is impressive that there was no finding on the ultrasound regarding the stone, which is wedged in the infundibulum at this time. Review of the imaging studies available regarding the ultrasound and certainly there is no sign of abnormality then. It is probable that he has been having biliary symptoms since October 30 as he never fully recovered from that episode he says. I discussed with him the pathophysiology of the problem and I have recommended cholecystectomy preferred by laparoscopic approach. The risks of bleeding, infection, bile duct injury, need for open procedure and other unforeseen complications reviewed in detail. Anticipating operation tomorrow, Thursday. We will initiate more aggressive fluid Electronically Signed By: DRU AHMADI MD 12/11/18 1022 PATIENT NAME: JULIO PARIS HISTORY AND PHYSICAL DATE OF : 45 REPORT #: [id number] PHYSICIAN: DRU AHMADI MD PCP: OTHER PCP REPORT IS CONFIDENTIAL AND NOT TO BE RELEASED WITHOUT AUTHORIZATION [facility] [address] [place] [id number] Signed resuscitation, parenteral antibiotics, IV pain medication as necessary and maintenance of his usual antihypertensive medications with a sip of water. We will initiate a sliding scale for his insulin. We will additionally get a 12-lead EKG on the unlikely possibility of any cardiac issues. MD PEPE Huertas/IRMAL /[id number] cc: MD Temo Baptiste MD Copies: RICH ALEMAN MD,DANIEL FLOWERS MD, MD ~ Electronically Signed By: DRU AHMADI MD 12/11/18 1022 PATIENT NAME: JULIO PARIS HISTORY AND PHYSICAL DATE OF : 45 REPORT #: [id number] PHYSICIAN: DRU AHMADI MD PCP: OTHER PCP REPORT IS CONFIDENTIAL AND NOT TO BE RELEASED WITHOUT AUTHORIZATION
--- NOTE | 2018-12-11 10:52 | NUR ---
SBA TO BATHROOM, VOIDED. ASSISTED BACK TO BED. PT DENIES OTHER NEEDS AT THIS TIME.
--- NOTE | 2018-12-11 11:25 | NUR ---
PT TO OR WITH DAYSURGERY RN.
--- NOTE | 2018-12-11 14:32 | NUR ---
12/11/18 1432 Freya Jewell 1417 PATIENT ARRIVES TO PACU UNRESPONSIVE TO PAINFUL STIMULI, ORAL AIRWAY IN PLACE. ROOM AIR SATS 89-90%. SCIENTIFIC SYSTEMS ANALYST PLACED MASK ON PATIENT AT 8 LITERS. 1420 PATIENT CONTINUES TO BE UNRESPONSIVE TO PAINFUL STIMULI. RESP EVEN AND UNLABORED, MASK AT 8 LITERS, SATS 100%. 1423 PATIENT OPENS EYES TO VERBAL STIMULI, OPENS MOUTH ON COMMAND, ORAL AIRWAY REMOVED. MASK CONTINUED AT 8 LITERS. 1425 PATIENT AWAKE OFF/ON, BUT CONFUSED. MASK OFF. ROOM AIR SATS >92%. 1430 PATIENT RESTING WITH EYES CLOSED. RESP EVEN AND UNLABORED, ROOM AIR SATS >90%. PATIENT DENIES PAIN OR NAUSEA.
--- NOTE | 2018-12-11 15:40 | NUR ---
PT RECEIVED FROM PACU, BEDSIDE REPORT OBTAINED. PT RATIGN PAIN 5/10, DECLINING PAIN MEDICATION. PT ON 2L NC, LUNG SOUNDS CLEAR. BOWEL TONES HYPOACTIVE, DENIES NAUSEA, PROVIDED WATER. RIGHT ABD INCISION DRESSING CDI, LAMAR DRAIN IN PLACE. SCDS TO BLE, CMS INTACT. FAMILY UPDATED ON PLAN OF CARE, QUESTIONS ANSWERED. PT DENIES OTHER NEEDS AT THIS TIME.
[2018-12-11] MEDS ORDERED: MEN 50 PLUS MU1 EACH PO (16:05)
--- NOTE | 2018-12-11 16:33 | NUR ---
PT RESTING IN BED. PT RATIGN PAIN 5/10, CONTINUES TO DECLINE PAIN MEDICATION. PT WEANED TO 1L NC, O2 SATS 97%. ABD INCISION WITH SMALL AMOUNT OF SHADOWING, LAMAR DRAIN IN PLACE, UMBILICAL SITE WITH STERISTRIPS, MINIMAL DRAINAGE. PT TOLERATING WATER WELL, DECLINING OTHER FOOD AT THIS TIME. VSS. PT DENIES OTHER NEEDS.
--- NOTE | 2018-12-11 17:26 | NUR ---
PT RESTING IN BED. PT WILL SMALL AMOUNT OF BLOODY DRAINAGE FROM UMBILICAL SITE, REINFORCED WITH GAUZE AND TAPE. ABD INCISION DRAINAGE UNCHANGED. PT EATING JELLO, PT DECLINING DINNER. VSS, WEANED TO ROOM AIR. PT DENIES OTHER NEEDS AT THIS TIME.
--- NOTE | 2018-12-11 17:51 | NUR ---
PT HAD OPEN GABE TODAY. PT WEANED TO ROOM AIR, LUNG SOUNDS CLEAR. PT PAIN TOLERABLE, RATING PAIN 5/10. PT WITH RIGHT ABD INCISION, SMALL AMOUNT OF SHADOWING, LAMAR DRAIN WITH SANGUINOUS FLUID. PT TOLERATING CLEAR LIQUIDS, ADVANCE TOLERATED, PT NOT INTERESTED IN FOOD AT THIS TIME. BLOOD GLUCOSE 182 AT DINNER, GIVEN 3 UNITS SS HUMALIN R. LR INFUSING AT 125 ML/HR. CMS INTACT, WITHOUT EDEMA, SCDS IN PLACE.
--- NOTE | 2018-12-11 18:46 | NUR ---
PT REQUESTING PAIN MEDICATION, GIVEN 1 PERCOCET. DISCUSSED SIDE EFFECTS, GIVEN PUDDING. PT DENIES OTHER NEEDS AT THIS TIME.
--- NOTE | 2018-12-11 19:56 | NUR ---
COOP WITH ASSESSMENT, MEPELEX DRESSING RLW, LAMAR PATENT W SS DRAINAGE. DAKSHA, NOT PASSING GAS YET. TOLERATING FLUIDS WELL, NO N/V, NO C/O PAIN. WALKED HALLWAYS TOLERATED WELL, BACK TO BED. SCDS IN PLACE
--- NOTE | 2018-12-12 00:18 | NUR ---
RESTING, NO DISTRESS, NO C/O PAIN. CPOX IN PLACE. IVF INFUSING. CALL LIGHT AT BEDSIDE
--- NOTE | 2018-12-12 02:35 | NUR ---
RECIEVED REPORT FROM JULIUS LAURENT. ROUNDED ON PATIENT FOR ASSESSMENT, REFER TO ASSESSMENT. PATIENT DENIES PAIN, CHEST PAIN, SHORTNESS OF BREATH, DIFFICULTY BREATHING, OR NAUSEA. PT DENIES ABD TENDERNESS. SHADOWING PRESENT ON MEPLEX DRESSING. LAMAR DRAIN EMPTIED, SEROSANGUINOUS/BILE COLORED DRAINAGE NOTED. GAUZE ON UMBILICUS IS CDI. HYPOACTIVE BOWEL TONES PRESENT. PT DENIED WANTING SCDS ON. IV FLUIDS INFUSING PER ORDER. CALL LIGHT WITHING REACH. PT DENIES ANYMORE NEEDS AT THIS TIME.
--- NOTE | 2018-12-12 04:28 | NUR ---
ROUNDED ON PATIENT RESTING IN BED WITH EYES CLOSED, RESPIRATORY RATE IS EVEN AND UNLABORED. CALL LIGHT WITHIN REACH.
--- NOTE | 2018-12-12 06:21 | NUR ---
ROUNDED ON PATIENT RESTING AWAKE IN BED. MEDICATION ADMINISTRATION COMPLETE PER ORDER. THIS RN ASSISTED PATIENT TO RESTROOM A 1PA TO GET OUT OF BED AND THEN PATIENT WAS A SBA AMBULATING TO AND FROM RESTROOM. PATIENT REPORTS PASSING FLATUS. PATIENT STATES PAIN INCREASES TO A "8/10" WITH MOVEMENT. PATIENT DENIES PAIN AT REST AND DENIES WANTING PRN PAIN MEDICATION. EDUCATION PROVIDED ABOUT APPROPRIATE PAIN MANAGEMENT INTERVENTIONS, PT EXPRESSED UNDERSTANDING. CALL LIGHT WITHIN REACH. PT DENIES ANY FURTHER NEEDS AT THIS TIME.
--- NOTE | 2018-12-12 07:29 | NUR ---
RECIEVED BEDSIDE REPORT FROM ANASTASIIA BARRETT. PT SLEEPING COMFORTABLY, BREATHING EVEN AND UNLABORED. IVF RUNNING PER ORDER.
--- NOTE | 2018-12-12 07:41 | NUR ---
RECIEVED BEDSIDE REPORT FROM ANASTASIIA MIJARES. PT RESTING, BUT WAKES TO VOICE. PT APPEARS COMFORTABLE. NO NEEDS AT THIS TIME.
--- NOTE | 2018-12-12 07:43 | EKG ---
[facility] [address] [facility] [place] [address] Signed Normal sinus rhythm Normal ECG When compared with ECG of 09-MAR-2017 19:49, Vent. rate has decreased BY 42 BPM Inverted T waves have replaced nonspecific T wave abnormality in Inferior leads Confirmed by SANDRA MEDEL MD ([id number]) on 12/12/2018 7:43:32 AM Electronically Signed By: SANDRA MEDEL MD 12/12/18 0743 PATIENT NAME: CESIASUKHIJULIO SANTIAGOSOULEYMANE Electrocardiogram DATE OF : 45 PHYSICIAN: SANDRA MEDEL MD REPORT #: [id number] REPORT IS CONFIDENTIAL AND NOT TO BE RELEASED WITHOUT AUTHORIZATION
--- NOTE | 2018-12-12 08:38 | NUR ---
SHADOWING INCREASED OUT OF PREVIOUS OUTLINED AREA, STILL SMALL AMT. REOUTLINED NEW SHADOWING. SMALL AMT OF OF MOSTLY SEROUS FLUID IN LAMAR DRAIN. PT REPORTS NO PAIN, NO NAUSEA. VOIDING WELL. HYPOACTIVE BT. POOR APPITITE, BUT IS EATING SMALL AMTS.
--- NOTE | 2018-12-12 10:20 | NUR ---
PATIENT RESTING IN BED. FAMILY IN ROOM. VITAL SIGNS AND I&O DONE. CALL LIGHT WITHIN REACH. NO OTHER NEEDS AT THIS TIME
--- NOTE | 2018-12-12 11:40 | NUR ---
PATIENT SITTING UP IN CHAIR. FAMILY IN ROOM. LINENS CHANGED. PATIENT REFUSED TO TAKE A SHOWER TODAY. CALL LIGHT WITHIN REACH. NO OTHER NEEDS AT THIS TIME
--- NOTE | 2018-12-12 13:37 | NUR ---
PATIENT RESTING IN BED. VITAL SIGNS AND I&O DONE. CALL LIGHT WITHIN REACH. NO OTHER NEEDS AT THIS TIME
--- NOTE | 2018-12-12 17:14 | NUR ---
PATIENT SITTING UP IN CHAIR. VITAL SIGNS AND I&O DONE. PATIENT GOES TO USE BATHROOM. ONE PERSON ASSISTING. NO OTHER NEEDS AT THIS TIME
--- NOTE | 2018-12-12 19:05 | NUR ---
RECIEVED BEDSIDE REPORT FROM YOSELYN LAURENT. THIS RN SBA PATIENT TO RESTROOM. PATIENT SAFELY BACK INTO BED. WHITE BOARD UPDATED. IV FLUIDS INFUSING PER ORDER. CALL LIGHT WITHIN REACH. PT DENIES ANYMORE NEEDS AT THIS TIME.
--- NOTE | 2018-12-12 21:30 | NUR ---
ASSESSMENT COMPLETE, REFER TO ASSESSMENT. MEDICATIONS ADMINISTERED PER ORDER. PATIENT DENIES CHEST PAIN, SHORTNESS OF BREATH, OR DIFFICULTY BREATHING. ACTIVE BT NOTED, PT REPORTS PASSING FLATUS. PT DENIES NAUSEA. PATIENT DENIES HAVING ANY PAIN IN ABD. DRESSING ON ABD ASSESSED, SHADOWING PRESENT, NO NEW DRAINAGE NOTED OUTSIDE OF OUTLINED AREA OF SHADOWING. SEROUS DRAINAGE NOTED WITH STREAKS OF SANGUINOUS DRAINAGE. IV FLUIDS INFUSING PER ORDER. PT DENIES WANTING TO WEAR SCDs. CALL LIGHT WITHIN REACH. PT DENIES ANY FURTHER NEEDS AT THIS TIME.
--- NOTE | 2018-12-12 22:56 | NUR ---
ROUNDED ON PT RESTING AWAKE IN BED. PATIENT REPORTS HAVING "A LITTLE BIT OF PAIN", PT STATES PAIN IS AN "8/10", BUT INCREASES TO A "10/10" WITH COUGHING AND MOVEMENT, PRN PAIN MEDICATION ADMINISTERED PER ORDER. CRACKERS PROVIDED. PROVIDED PATIENT EDUCATION ABOUT BRACING ABD WITH PILLOW DURING COUGHING OR MOVEMENT, PT EXPRESSED UNDERSTANDING. CALL LIGHT WITHIN REACH. PT DENIES ANY MORE NEEDS AT THIS TIME.
--- NOTE | 2018-12-12 23:05 | NUR ---
V/S AND I&O TAKEN AND CHARTED. 1 PA TO THE BATHROOM AND BACK TO BED. ICE WATER REFILLED.
--- NOTE | 2018-12-13 01:00 | NUR ---
ROUNDED ON PATINET SITTING UP IN BED. PT REPORTS PAIN IN BLE A "6/10", STATED PAIN HAS REDUCED A LITTLE BIT. MOUTH SWABS PROVIDED. URINAL EMPTIED. CALL LIGHT WITHIN REACH. PT DENIES ANY MORE NEEDS AT THIS TIME.
--- NOTE | 2018-12-13 01:07 | NUR ---
ROUNDED ON PATIENT RESTING IN BED WITH EYES CLOSED, RESPIRATORY RATE IS EVEN AND UNLABORED. CALL LIGHT WITHIN REACH.
--- NOTE | 2018-12-13 03:08 | NUR ---
ASSESSMENT COMPLETE, REFER TO ASSESSMENT. PATIENT DENIES HAVING CHEST PAIN, SHORTNESS OF BREATH, OR DIFFICULTY BREATHING. PATIENT DENIES PAIN AT THIS TIME, BUT PT REPORTS PAIN INCREASES TO A "6/10" WITH MOVEMENT, HOWEVER PT STATES PAIN IS "GETTING BETTER" WHEN PT DOES MOVE. DRESSING ON ABD SHOWS NO NEW DRAINAGE, SHADOWING HAS REMAINED WITHIN PREVIOUSLY OUTLINED AREA OF DRESSING. SEROUS DRAINAGE NOTED IN LAMAR, WITH STREAKS OF SEROSANGUINOUS DRAINAGE WELL. PT DENIES WANTING TO WEAR SCDS. ACTIVE BOWEL TONES NOTED, PT REPORTS PASSING FLATUS. IV FLUIDS INFUSING PER ORDER. PT DENIES ANY MORE NEEDS AT THIS TIME. CALL LIGHT WITHIN REACH.
--- NOTE | 2018-12-13 06:08 | NUR ---
ROUNDED ON PATIENT RESTING AWAKE IN BED. PATIENT DENIES PAIN. SCHEDULED MEDICATION ADMINISTERED PER ORDER. LAMAR DRAIN EMPTIED, SEROUS/SEROSANGUINOUS DRAINAGE NOTED. CALL LIGHT WITHIN REACH. PT DENIES ANYMORE NEEDS AT THIS TIME.
--- NOTE | 2018-12-13 07:52 | NUR ---
PATIENT UP IN CHAIR. CALL LIGHT IN REACH. NO FURTHER NEEDS AT THIS TIME.
--- NOTE | 2018-12-13 09:08 | NUR ---
PT SITTING UP IN RECLINER. RATES PAIN TO ABDOMEN 6/10, BUT DENIES NEED FOR PAIN MEDICATION AT THIS TIME. DID DEEP BREATHING AND COUGHING AT THIS RN'S ENCOURAGEMENT. LAMAR HAS SMALL AMOUNT OF SEROSANGUAINOUS DRAINAGE IN BULB. MEPILEX DRESSING TO RIGHT ABDOMEN HAS MODERATE AMOUNT OF BLOODY DRAINAGE PRESENT, BUT DRESSING IS DRY AND INTACT. PT REPORTS EATING SCRAMBLED EGGS AND TOAST, DENIED PAIN OR NAUSEA WITH EATING.
--- NOTE | 2018-12-13 09:27 | NUR ---
Medications reconciled with patient interview
--- NOTE | 2018-12-13 09:48 | NUR ---
PATIENT IN CHAIR, FAMILY IN ROOM. FRESH WATER GIVEN. CALL LIGHT IN REACH. NO FURTHER NEEDS AT THIS TIME.
--- NOTE | 2018-12-13 11:49 | NUR ---
PT C/O 02/09 PAIN TO ABDOMEN. GAVE PERCOCET 7.5/325 MG 1 TAB PO PRN. PT SITTING UP IN RECLINER, AT SIDE.
--- NOTE | 2018-12-13 12:09 | NUR ---
PT AMBULATED IN HALLWAYS, AROUND LARGE LOOP X 1 WITH STANDBY ASSIST. TOLERATED WELL. SITTING UP IN RECLINER EATING LUNCH NOW. AT SIDE.
[2018-12-13] MEDS ORDERED: MOTRIN IB200 MG PO (12:56)
[2018-12-13] MEDS ORDERED: OXYCODON-ACETA1 EAC2 PO (12:56)
[2018-12-13] MEDS ORDERED: TYLENOL325 MG PO (12:57)
--- NOTE | 2018-12-13 13:16 | NUR ---
PT UP AMBULATING IN HALLWAYS WITH CHRISTIAN PENN, AND WITH HIS , STEADY ON FEET, STANDBY ASSIST, TOLERATING WELL.
--- NOTE | 2018-12-13 13:31 | NUR ---
PT SITTING IN CHAIR- AT BS. HE IS ALERT, ORIENTED AND EXPRESSED SEVERAL TIMES HE IS READY TO GO! HAD PLEASANT VISIT, PT STATED THAT RN'S HAVE KEPT HIM IN THE LOOP REGARDING HIS PLAN OF CARE. EXTENDED A BLESSING, WILL FOLLOW NEEDED
--- NOTE | 2018-12-13 13:33 | NUR ---
PATIENT AMBULATED IN HALLWAY, SBA. PATIENT NOW BACK TO CHAIR, IN ROOM. CALL LIGHT IN REACH. NO FURTHER NEEDS AT THIS TIME.
[2018-12-13] MEDS ORDERED: METOPROLOL TART50 MG PO (13:45)
--- NOTE | 2018-12-13 19:22 | OR ---
[facility] [address], [place] [address] Signed DATE OF OPERATION: 12/11/2018 SURGEON: Dru Ahmadi MD DATE OF PROCEDURE: 12/11/2018 PREOPERATIVE DIAGNOSES: 1. Acute calculous cholecystitis. 2. Insulin-dependent diabetes mellitus. 3. Recurrent right renal nodule. 4. History of right partial nephrectomy for renal cell carcinoma 10 years ago. POSTOPERATIVE DIAGNOSES: 1. Severe acute calculus cholecystitis. 2. Extensive intraabdominal adhesions. PROCEDURES PERFORMED: 1. Laparoscopy with lysis of adhesions. 2. Conversion to open cholecystectomy (prolonged, complicated, and difficult attempted butterfly needle cholangiogram.). 3. Surgeon-directed fluoroscopy. ANESTHESIA: General endotracheal. Xavier Chanel, CLOTH CUTTER and local 10 mL of 0.25% Marcaine with epinephrine. INDICATION: This 73-year-old white man has several medical problems including diabetes mellitus. He was seen on October 30 at the emergency room with significant right subcostal pain highly suggestive of cholecystitis. He was evaluated by Dr. Aguayo and a gallbladder ultrasound was performed, which showed no abnormality. He was sent home. He presented again yesterday with two days of unrelenting right upper abdominal pain. Given his previous evaluation, a CT scan was done which showed thickened gallbladder wall and a relatively large at least 1 cm stone obstructing the infundibulum of the gallbladder. There was no sign of intrahepatic ductal dilatation. Incidentally noted was a nearly 2 cm lesion of the superior pole of his right kidney. Of note, he underwent right partial nephrectomy for renal cell carcinoma in the right kidney about 10 years ago or so. He is due to have a visit with his urologist at [facility] in January. Electronically Signed By: DRU AHMADI MD 12/13/18 192 PATIENT NAME: JULIO PARIS OPERATIVE REPORT DATE OF : 45 REPORT #: [id number] PHYSICIAN: DRU AHMADI MD PCP: OTHER PCP REPORT IS CONFIDENTIAL AND NOT TO BE RELEASED WITHOUT AUTHORIZATION [facility] [address], [place] [address] Signed The patient's liver enzymes are normal. Even white count is normal really. He does have tenderness in right upper abdomen. He notes that he has really not felt well since his original evaluation in the emergency room on October 30. He is admitted at this time to undergo cholecystectomy preferred by laparoscopic approach. He understands the risks of bleeding, infection, bile duct injury need for open procedure and other unforeseen complications and wished to proceed. FINDINGS: Upon laparoscopy, he was noted to have extensive intraabdominal adhesions directly over the liver. One portion of his adhesions to the apex of his gallbladder to the diaphragm was quite intense and very dense requiring a fair amount of effort to free it up. Other filmy adhesions were taken down sharply without much trouble. Upon dissection with a laparoscopic approach, he was found to have dense fusion of the infundibulum of the gallbladder to the duodenum. Duodenal manipulation was rather unsuccessful in freeing this area and the possibility of a chelocysto-duodenal fistula was actually considered as well. Conversion to open operation was made on that basis primarily. At open operation, he was found not to have a cholecystomy enteric fistula, but certainly a very amorphous infundibulum. The anatomy was ultimately well defined showing a cystic duct extending to the common bile duct. The cystic duct was rather short. An attempt at a butterfly needle cholangiogram was undertaken through the common duct with direct puncture. However, extravasation of contrast initially noted obscured view of the cholangiogram and the cholangiogram images were suboptimal at best. Multiple attempts were undertaken to do so. Although, common duct exploration would be a 0consideration given he had normal liver enzymes and so forth. I did not proceed with that. The drain was left and a small bile leak at the area of puncture of the common duct is noted. DESCRIPTION OF PROCEDURE: The patient was brought to the operating room, given a general endotracheal anesthetic. Preoperative antibiotic Ancef was given. Sequential compression device stockings used and heparin subcutaneously administered. The abdomen was clipped and prepared with chlorhexidine solution and draped sterilely. An infraumbilical incision was made and using an open Fredi cannula technique, pneumoperitoneum achieved to a level of 14 mmHg of carbon dioxide gas. Intraabdominal inspection showed extensive adhesions of the upper abdomen, particularly over the dome of the liver on the right side and left and in the region of the epigastric area. A right-sided 5 mm trocar was placed as was a 10 mm epigastric port. Using the right-sided ports and hook scissors, adhesions were taken down quite impressively. Electronically Signed By: DRU AHMADI MD 12/13/181921 PATIENT NAME: JULIO PARIS OPERATIVE REPORT DATE OF : 45 REPORT #: [id number] PHYSICIAN: DRU AHMADI MD PCP: OTHER PCP REPORT IS CONFIDENTIAL AND NOT TO BE RELEASED WITHOUT AUTHORIZATION [address] [address] Signed It was noted that the infundibulum of the gallbladder was markedly thickened and chronically inflamed and essentially fused to the diaphragm area. With additional manipulation and blunt dissection, and judicious amounts of cautery, those adhesions were freed. Nevertheless, the gallbladder could not be elevated that much. There was marked inflammatory change of the gallbladder itself. Omental adhesions were taken down with meticulous care ultimately identifying the midportion of the gallbladder. The gallbladder was elevated as much as reasonable and using meticulous care and blunt and electrocautery and irrigation dissection, the lower half of the gallbladder was more fully revealed. In the lower medial aspect, there appeared to be the duodenal sweep which appeared to be essentially fused with the gallbladder itself. This was suggestive at one point of possible cholecystoenteric fistula (cholecysto-duodenal fistula). Blunt dissection with Kitner and so forth was undertaken with little progress and ultimately deemed inadvisable to proceed further and a laparoscopic approach for concern of causing duodenal injury. On that basis, trocars were removed under direct visualization showing no sign of bleeding in the infraumbilical fashion. Incision reapproximated with interrupted 0 Vicryl suture. The right subcostal incision was made in the usual way transecting the skin with a #15 blade and subcutaneous tissue, anterior rectus sheath, rectus abdominis and posterior rectus sheath and peritoneum with electrocautery. A Bookwalter retractor was affixed to the table. Good exposure provided. The area where adhesions of the gallbladder to the diaphragm were noted did not appear malignant. I detected no sign of malignant metastatic disease to the liver. Indeed, the infundibulum and the duodenum where densely adherent. A ring clamp was applied to the apex of the gallbladder and using blunt electrocautery dissection, the infundibulum ultimately freed from the duodenum itself. Once the duodenum was completely freed and out of harm's way, and isolated with laparotomy packs and the malleable Bookwalter, attention was turned to the cholecystectomy proper. The ring clamp was adjusted using electrocautery, the peritoneum of the gallbladder was incised at the apex of the gallbladder. It became quickly obvious that there was intense fusion of the gallbladder and the typical plane able to be developed between the gallbladder and the liver was not forthcoming. Marked vascularity was noted as well. On that basis, a bivalve cholecystectomy was undertaken. Dissection carried down to the infundibulum where meticulous care was maintained to define the anatomy more fully. Ultimately, a cystic arterial branch was identified and doubly clipped and divided and with meticulous care, the cystic duct identified. It appeared to be rather short in comparison to the common duct, which appeared to be easily identified. A tonsil clamp was applied to the cystic duct remnant and gallbladder transected. Palpation within the infundibulum detected the offending obstructing 1.5 cm stone. There was no sign of malignancy of the mucosa of the gallbladder. The cystic duct being short and so forth did allow for egress of clear bile from its Electronically Signed By: DRU AHMADI MD 12/13/181921 PATIENT NAME: JULIO PARIS OPERATIVE REPORT DATE OF : 45 REPORT #: [id number] PHYSICIAN: DRU AHMADI MD PCP: OTHER PCP REPORT IS CONFIDENTIAL AND NOT TO BE RELEASED WITHOUT AUTHORIZATION [address] [address] Signed endpoint. It appeared quite ineffective to pass the catheter into the cystic duct itself. On that basis, the cystic duct was doubly clipped and subsequently secured with an Endoloop PDS device. Dissection was limited to the common duct, but quite obviously identified as such. TB syringe with a small needle was used to puncture the common duct delivering clear bile. Using an angled butterfly needle to provide common duct cholangiogram, attempts were made with fluoroscopy to provide cholangiogram. Unfortunately, there was initial extravasation of contrast such that for separate attempts at complete cholangiography were obscured. It would have been no real problem to perform common duct exploration, but with normal liver enzymes and no clear evidence of obstruction in any way, it was deemed advisable to simply conclude the operation without benefit of clear cholangiogram. The puncture site which had some bile leak was oversewn with 4-0 PDS suture. Through one of the 5 mm trocar sites, a 7 mm flat drain was placed in the subhepatic space after copious irrigation was undertaken. Abdominal viscera was allowed to return to its normal anatomic configuration. The posterior sheath and its attendant peritoneum reapproximated running #1 PDS suture as was the anterior rectus sheath after irrigation of the muscle layer. Subcutaneous tissue was irrigated and skin closed with running subcuticular 3-0 Vicryl. The other wounds were closed with interrupted 3-0 Vicryl. Steri-Strips were applied. A Mepilex silver sponge dressing was applied as was an OpSite. There was a bilious leak through the drain at the conclusion of the procedure, which is not unexpected given the small amount of bile leakage with puncture of the common duct for cholangiogram. The patient was ultimately extubated and transferred to recovery in good condition having suffered no complications. Sponge, needle, and instrument counts were correct x3. MD PEPE Huertas/OMAR /[id number] cc: Dudley Shah MD Electronically Signed By: DRU AHMADI MD 12/13/18 1922 PATIENT NAME: JULIO PARIS OPERATIVE REPORT DATE OF : 45 REPORT #: [id number] PHYSICIAN: DRU AHMADI MD PCP: OTHER PCP REPORT IS CONFIDENTIAL AND NOT TO BE RELEASED WITHOUT AUTHORIZATION [facility] [address] [place] [id number] Signed Copies: DUDLEY SHAH MD ~ Electronically Signed By: DRU AHMADI MD 12/13/182 PATIENT NAME: JULIO PARIS OPERATIVE REPORT DATE OF : 45 REPORT #: [id number] PHYSICIAN: DRU AHMADI MD PCP: OTHER PCP REPORT IS CONFIDENTIAL AND NOT TO BE RELEASED WITHOUT AUTHORIZATION
--- NOTE | 2018-12-14 17:54 | DS ---
[place] [facility] [address] [facility] [place] [place] [address] Signed ADMISSION DATE: 12/12/2018 DISCHARGE DATE: 12/13/2018 REASON FOR ADMISSION: This 73-year-old white man has underlying problems of hypertension, diabetes, and is a patient of Dr. Shah. He presented to the emergency room at approximately 06:15 p.m., evaluated by Dr. Frances and subsequently Dr. Aleman. He had complaints of right-sided abdominal pain worsened with position change. Notably, he was evaluated in the emergency room on October 30, 2018, with right upper abdominal pain and an ultrasound of the gallbladder was performed showing strong suspicion of acute cholecystitis clinically, but a gallbladder ultrasound was normal. The right kidney did show a hypoechoic lesion in superior aspect of the kidney, suspicious for possible malignancy. It is noted that the patient has prior history of right partial nephrectomy for renal cell carcinoma at [facility] 10 years ago. His current evaluation included CT scan of the abdomen since ultrasound was previously negative. This clearly shows a thickened gallbladder wall and a calcified gallstone wedge in the infundibulum. The renal lesion on the right is highly suspicious for malignancy. It is approximately 19 mm in size. He is admitted for further evaluation and care. PERTINENT PHYSICAL EXAMINATION: GENERAL: Showed an elderly pleasant white man, who did not look systemically toxic. NECK: Trachea is midline. CHEST: Clear. HEART: Regular without murmur. ABDOMEN: Protuberant, relatively tight without sign of ascites. He had marked tenderness in right subcostal area. There is no palpable mass. LABORATORY STUDIES: Showed white count of 10.3, hematocrit 35, platelets 185,000. Chem profile normal. Glucose 195, creatinine 1.0, bilirubin 0.6. Liver enzymes normal. Urinalysis did show 10 white cells per high-power field, but no rbc's. HOSPITAL COURSE: He was fluid resuscitated, given intravenous antibiotics, and proceeded to operation on December 11, 2018. Laparoscopy was performed, which showed multiple dense adhesions of the upper abdomen including over the liver, probably related to chronic persistent cholecystitis since October 30 at his initial presentation. The gallbladder itself was densely adherent to the duodenum and other surrounding structures and safe mobilization of gallbladder could not be undertaken to allow for a laparoscopic approach. On that basis, conversion to open cholecystectomy was performed. The operation was prolonged, complicated, and difficult. The gallbladder did have a stone wedged in the Electronically Signed By: DRU AHMADI MD 12/14/18 1754 PATIENT NAME: JULIO PARIS DISCHARGE SUMMARY DATE OF : 45 REPORT #: [id number] PHYSICIAN: DRU AHMADI MD PCP: OTHER PCP REPORT IS CONFIDENTIAL AND NOT TO BE RELEASED WITHOUT AUTHORIZATION [facility] [address] [place], [place] [address] Signed infundibulum. Attempts at a butterfly catheter cholangiogram to the common bile duct were unsuccessful due to spillage though he was noted to not have elevated liver enzymes preoperatively. A drain was placed. Postoperatively had a brief bile leak as would be expected after puncturing the common bile duct with the small butterfly needle, but this cleared up quickly. He had progressive improvement. By day of discharge, he is ambulating well, tolerating regular diet, has minimal incisional pain, and no bile in the drain, which has now been removed. The patient already has an appointment to be seen at [facility] by his managing team in followup from the right renal nodule, which very likely is a recurrent renal cell carcinoma. FOLLOWUP: Follow up plan with me is to return in about a month for general followup. DISCHARGE MEDICATIONS: His discharge medications will include: 1. Percocet 7.5/325 1-2 p.o. q.4 hours p.r.n. pain #10. 2. Ibuprofen 600 mg p.o. q.6 hours p.r.n. pain, #30, refill none. 3. Tylenol 325 to 650 mg p.o. q.4 hours as needed for pain #30. He will resume his usual medications of: 1. Metoprolol 50 mg p.o. daily. 2. Simvastatin 40 mg p.o. daily. 3. Metformin 500 mg two tablets p.o. b.i.d. 4. Lisinopril 20 mg p.o. daily. 5. Aspirin 81 mg p.o. daily. 6. Multivitamin one p.o. daily. DISCHARGE DIAGNOSES: 1. Severe acute calculus cholecystitis, status post laparoscopy with conversion to open cholecystectomy, prolonged complicated, and difficult. Attempted cholangiogram insufficient due to extravasation. 2. 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 3. History of right renal cell carcinoma with partial nephrectomy 10 years ago. 4. Diabetes mellitus. 5. Hypertension. Electronically Signed By: DRU AHMADI MD 12/14/18 0664 PATIENT NAME: JULIO PARIS DISCHARGE SUMMARY DATE OF : 45 REPORT #: [id number] PHYSICIAN: DRU AHMADI MD PCP: OTHER PCP REPORT IS CONFIDENTIAL AND NOT TO BE RELEASED WITHOUT AUTHORIZATION [address] [address] Signed MD PEPE Huertas/MODL /[id number] cc: MD Dudley Baptiste MD Copies: RICH ALEMAN MD, MALCOLM MD ~ Electronically Signed By: DRU AHMADI MD 12/14/18 1754 PATIENT NAME: RAINAJULIO SANTIAGOSOULEYMANE DISCHARGE SUMMARY DATE OF : 45 REPORT #: [id number] PHYSICIAN: DRU AHMADI MD PCP: OTHER PCP REPORT IS CONFIDENTIAL AND NOT TO BE RELEASED WITHOUT AUTHORIZATION
== END 2018-12-13 14:20 | disposition home or self-care (01) | DRG 445 ==
LOC: ED 17:39 → MS 17:41
PROVIDERS: ADMIT Surgery
DX: K80.00 Calculus of gallbladder with acute cholecystitis without obstruction (principal); C64.1 Malignant neoplasm of right kidney, except renal pelvis; I10 Essential (primary) hypertension; E11.9 Type 2 diabetes mellitus without complications; E78.5 Hyperlipidemia, unspecified; Z90.5 Acquired absence of kidney; Z90.49 Acquired absence of other specified parts of digestive tract; Z85.528 Personal history of other malignant neoplasm of kidney; Z85.828 Personal history of other malignant neoplasm of skin; Z79.82 Long term (current) use of aspirin; Z79.4 Long term (current) use of insulin; Z79.899 Other long term (current) drug therapy
CPT/HCPCS: 36415; 74177; 74300; 80053; 81001; 83690; 85025; 93005; 93010; 99285-25; J0131; J0690; J1100; J1170; J1644; J1815; J1885; J2270; J2370; J2405; J2704; J3010; J7040; J7120; Q9967

== ENCOUNTER 2022-06-26 08:10 | Emergency (ER) | payer OTHER, MEDICARE ==
[~2022-06-26] VITALS: Ht 167.6 cm; Wt 50.8 kg
[~2022-06-26 08:10] MED LIST changes: +ASPIRIN81 MG PO; +MEN 50 PLUS MU1 EACH PO; +MOTRIN IB200 MG PO; +OXYCODON-ACETA1 EAC2 PO; +TYLENOL325 MG PO
== END 2022-06-26 10:17 | disposition home or self-care (01) ==
LOC: ED 08:10
DX: R33.9 Retention of urine, unspecified (principal); E11.9 Type 2 diabetes mellitus without complications; E78.00 Pure hypercholesterolemia, unspecified; I10 Essential (primary) hypertension; Z79.899 Other long term (current) drug therapy; Z79.84 Long term (current) use of oral hypoglycemic drugs; Z79.4 Long term (current) use of insulin
CPT/HCPCS: 51702; 51798; 81001; 99283-25

== ENCOUNTER 2023-09-23 15:11 | Emergency (ER) | payer OTHER, MEDICARE ==
[~2023-09-23] VITALS: Ht 167.6 cm; Wt 83.0 kg
--- OUTSIDE RECORDS SUMMARY | 2023-09-23 15:18 | XMS ---
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 Christina has no Care Guidelines for this patient. [facility] ([address] [facility] NOTE: Visits indicate total known visits. ED/C VISIT TRACKING (12 MO.) [facility] COMPLAINT: - RT KNEE PAIN 09/16/2023 08:[address] 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
[2023-09-23] MEDS ORDERED: TRIAMCINOLONE ACET 40 MG/ML VIAL 1 ML IAARTIC ONE (18:45)
[2023-09-23 19:39] VITALS: BP 174/70
== END 2023-09-23 19:44 | disposition home or self-care (01) ==
LOC: ED 15:11
DX: M25.561 Pain in right knee (principal); I10 Essential (primary) hypertension; E11.9 Type 2 diabetes mellitus without complications; E78.00 Pure hypercholesterolemia, unspecified; Z79.4 Long term (current) use of insulin; Z79.84 Long term (current) use of oral hypoglycemic drugs; Z79.82 Long term (current) use of aspirin; Z79.899 Other long term (current) drug therapy
CPT/HCPCS: 20610; 73560; 99283-25; J3301

== ENCOUNTER 2024-06-03 13:22 | Emergency (ER) | payer OTHER, MEDICARE ==
[~2024-06-03] VITALS: Ht 167.6 cm; Wt 70.3 kg
[2024-06-03] MEDS ORDERED: GABAPENTIN 300 MG CAP PO ONE (14:30)
[2024-06-03] MEDS ORDERED: NEURONTIN300 MG PO (14:49)
[2024-06-03 15:00] VITALS: BP 139/81
== END 2024-06-03 15:00 | disposition home or self-care (01) ==
LOC: ED 13:22
DX: M79.674 Pain in right toe(s) (principal); E11.9 Type 2 diabetes mellitus without complications; E78.00 Pure hypercholesterolemia, unspecified; I10 Essential (primary) hypertension; Z85.038 Personal history of other malignant neoplasm of large intestine; Z79.84 Long term (current) use of oral hypoglycemic drugs; Z79.82 Long term (current) use of aspirin; Z79.899 Other long term (current) drug therapy
CPT/HCPCS: 99283; A9270

== ENCOUNTER 2025-02-01 18:34 | Emergency (ER) | payer OTHER, MEDICARE ==
[~2025-02-01] VITALS: Ht 167.6 cm; Wt 70.2 kg
[~2025-02-01 18:34] MED LIST changes: +NEURONTIN300 MG PO
[2025-02-01 18:47] LABS: BASOPHILS 0.2 % (0.2-1.2); EOSINOPHILS 0.9 % (0.8-7.0); LYMPHOCYTES 16.6 % (21.8-53.1); MCH 26.8 PG (25.7-32.2); MCHC 31.3 g/dL (32.3-36.5); MCV 85.4 fL (79.0-92.2); MONOCYTES 8.1 % (5.3-12.2); NEUTROPHILS 73.8 % (34.0-67.9); RBC 4.52 M/uL (4.63-6.08)
[2025-02-01] MEDS ORDERED: OZEMPIC0.25 MG/02 SQ (18:47)
[2025-02-01] MEDS ORDERED: HYDROCHLOROTH12.5 M1 PO (18:48)
[2025-02-01] MEDS ORDERED: EPLERENONE25 MG PO (18:49)
[2025-02-01] MEDS ORDERED: COREG25 MG (18:50)
[2025-02-01] MEDS ORDERED: LIPITOR40 MG PO (18:50)
[2025-02-01 19:06] LABS: ALT (SGPT) 67.0 U/L (14-59); AST (SGOT) 39.0 U/L (15-37); GLOMERULAR FILTRATION RATE,EST 33.0 mL/min (>60); PROTEIN, TOTAL 6.7 g/dL (6.4-8.2); UREA NITROGEN 29.0 mg/dL (7-18)
[2025-02-01 22:13] VITALS: BP 169/54
--- NOTE | 2025-02-03 17:24 | EKG ---
[facility] [address] [place] [address] Signed Sinus rhythm with 2nd Degree AV Block (Mobitz type II) with 3:1 AV conduction Right bundle branch block Possible Inferior infarct , age undetermined Abnormal ECG When compared with ECG of 16-Sep-2023 08:36:46 Sinus rhythm with 2nd degree AV block (Mobitz II) has replaced Normal sinus rhythm Confirmed by Karen Watkins MD ([id number]) on 02/03/2025 5:24:44 PM Electronically Signed By: KAREN WATKINS MD 02/03/25 1724 PATIENT NAME: JULIO PARIS Electrocardiogram DATE OF : 45 PHYSICIAN: KAREN WATKINS MD REPORT #: [id number] REPORT IS CONFIDENTIAL AND NOT TO BE RELEASED WITHOUT AUTHORIZATION
== END 2025-02-01 23:08 | disposition short-term general hospital (02) ==
LOC: ED 18:34
PROVIDERS: Emergency Medicine
DX: I44.1 Atrioventricular block, second degree (principal); I10 Essential (primary) hypertension; E11.9 Type 2 diabetes mellitus without complications; Z79.899 Other long term (current) drug therapy
CPT/HCPCS: 36415; 71045; 80053; 83735; 84484; 85025; 93005; 93010; 99285-25